=== PATIENT | male | born 1970 | race Caucasian/White ===

== ENCOUNTER 2017-05-28 20:02 | Emergency (ER) | payer MEDICAID ==
[~2017-05-28] VITALS: Ht 172.7 cm; Wt 87.0 kg
[2017-05-28 20:16] VITALS: Ht 172.7 cm; Wt 87.0 kg
[2017-05-28] MEDS ORDERED: KETOROLAC 15 MG INJ IM STA (21:00)
[2017-05-28] MEDS ORDERED: DIAZEPAM 5 MG TAB PO ONE (21:00)
[2017-05-28] MEDS ORDERED: HYDR-906 PO (22:40)
--- NOTE | 2017-05-28 22:40 | ERD ---
ER Documentation Chief Complaint Date/Time DATE: 05/28/17 TIME: 22:36 Chief Complaint fell yesterday hit his back; c/o back pain now HPI This pleasant 46-year-old male patient presents to emergency department for evaluation of right-sided back pain. Patient reports injury when he leaned forward from a stool that he was sitting on and went to lean back missed the stool hitting his back on the edge of the stool. Patient reports right-sided pain 8/10 on pain scale. 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 Denies any alteration in bowel or bladder able to ambulate without deficit. ROS All systems reviewed and are negative except as per history of present illness. Medications Home Meds Active Scripts Tramadol HCl (Tramadol HCl) 50 Mg Tablet, 50 MG PO Q4 Y for PAIN, #15 TAB Prov:JOSE L TILLEY MD 05/30/17 Naproxen* (Naprosyn*) 500 Mg Tablet, 500 MG PO BID Y for PAIN AND/OR INFLAMMATION, #20 TAB Prov:JORGE,AXEL 05/28/17 Hydrocodone/Acetaminophen ([place] 5-325 Tablet) 1 Each Tablet, 1 TAB PO Q6H Y for PAIN, #7 TAB Prov:JORGE,AXEL 05/28/17 Allergies Allergies: Coded Allergies: No Known Allergy (Unverified , 05/30/17) PMhx/Soc Medical and Surgical Hx: pt denies Surgical Hx Anesthesia Reaction: No Hx Miscellaneous Medical Probl: Yes (chronic back pain) Hx Alcohol Use: No Hx Substance Use: No Hx Tobacco Use: No Smoking Status: Never smoker Physical Exam Vitals Vitals stable, triage notes reviewed Physical Exam Const: Well-appearing well-nourished, well-hydrated no acute Head: Atraumatic Eyes: Normal Conjunctiva, PERRLA, EOMI ENT: Normal External Ears, Nose and Mouth mucous membranes moist. Neck: Resp: Respirations even and on Cardio: Regular rate and rhythm, no murmurs Abd: Soft, non tender, non distended no CVA tenderness Skin: Back Exam: Skin: No bruising or rash Compartments: Soft Motor: Normal flexion and extension of bilateral hip/knee/ ankle/foot] straight leg rises negative at 90. Negative pain with abduction or abduction Sensation: Intact to light touch throughout Bones: No midline TTP Ext: No cyanosis, or edema Neur: Awake and alert Psych: Normal Mood and Affect Results 24 hrs Current Medications Medications (Trade) Dose Ordered Sig/Allyssa Route PRN Reason Start Time Stop Time Status Last Admin Dose Admin Ketorolac Tromethamine (Toradol) 15 mg ONCE STAT IM 05/28/17 21:00 05/28/17 21:02 DC 05/28/17 21:16 Diazepam (Valium) 5 mg ONCE ONCE PO 05/28/17 21:00 05/28/17 21:02 DC 05/28/17 21:17 Procedures/MDM This pleasant 46-year-old male patient presents to emergency department today for back injury. Patient reports he was sitting on his tool leaning forward to and his in an item in when he leaned back he missed the stool that he was sitting on hitting his back on the hardwood surface. Patient patient is able to ambulate without limp or listing. Has no alteration in bowel or bladder. Low suspicion for a malignancy or infectious discitis, transverse myelitis or epidural abscess or hematoma. No suspicion for cauda equina syndrome. Patient straight leg rises support a musculoskeletal injury. X-ray not indicated. Patient received Toradol and Valium in emergency department with minimal relief of symptoms. Patient given additional medication with [place]. Will be discharged home with [place] for pain greater than 5 out of 10 on pain scale, Naprosyn 500 mg 1 tab p.o. twice daily pain less than 5 out of 10. Instructed to follow-up with primary care physician for referral to physical therapy or further diagnostic studies. Return to emergency department for alteration ambulation, change in bowel or bladder. I feel the patient is stable for discharge at this time. I have discussed results, examination findings, the treatment plan with the patient and family present prior to discharge. Indications for emergent reevaluation, side effects of medication were also discussed. All questions were answered. Patient verbalizes understanding and agrees with plan of care. Departure Diagnosis: Primary Impression: Back contusion Encounter type: initial encounter Laterality: right Qualified Code: S20.221A - Back contusion, right, initial encounter Patient Instructions: Contusion, Back [facility] Additional Instructions: Thank you for for coming to [facility] for your care today. Please ask your nurse or provider if you have questions about your care today and do not leave until all your questions have been answered. Please use any medications given as directed and follow-up with your doctor (or the doctor you were referred to) in the next 2-3 days. If you do not have a primary care doctor you may follow up at the [facility] (listed below). You may also use motrin and tylenol as needed for fever and/or pain unless instructed otherwise by your provider or nurse. Indications for more urgent follow-up have been discussed, but you may return to the Emergency Department at ANY time for any worrisome or worsening symptoms. If you have abdominal pain, please know that no test or exam you received is perfect and you should follow up within 8 hours for continued pain. If you had any imaging studies today, such as an X-Ray or CT Scan, these studies will be reviewed later by a radiologist. You will be called if there are important findings that were not identified today, so make sure the contact information you provided at registration is correct. If you received any narcotic pain control medicine today, such as Vicodin, Morphine or Dilaudid, your coordination and judgment may be affected for a number of hours. Please do not drive or operate heavy machinery, and you may want someone to assist you at home. If you were given a prescription for narcotic medication, be aware that it is very addictive- use sparingly and only if necessary. AXEL PATEL May 28, 2017 22:40
[2017-05-28] MEDS ORDERED: NAPR-260 PO (22:41)
== END 2017-05-28 22:49 | disposition home or self-care (01) ==
LOC: FTE 20:02
DX: S20.221A Contusion of right back wall of thorax, initial encounter (principal); W18.09XA Striking against other object with subsequent fall, initial encounter; Y92.9 Unspecified place or not applicable
CPT/HCPCS: J1885; Z7610; 96372

== ENCOUNTER 2017-05-30 19:07 | Emergency (ER) | payer MEDICAID ==
[~2017-05-30] VITALS: Ht 177.8 cm; Wt 87.0 kg
[~2017-05-30 19:07] MED LIST: HYDR-906 PO; NAPR-260 PO
[2017-05-30 19:12] VITALS: Ht 177.8 cm; Wt 87.0 kg
[2017-05-30] MEDS ORDERED: HYDROCODONE/APAP (5/325) TAB PO ONE (21:00)
[2017-05-30] MEDS ORDERED: TRAM50TA2 PO (21:33)
--- NOTE | 2017-05-30 21:36 | ERD ---
ER Documentation Chief Complaint Date/Time DATE: 05/30/17 TIME: 21:34 Chief Complaint back pain x 5 days, denies injury HPI 38-year-old male presents with right lower back pain. It started after falling off a stool and landing against the edge of a counter. He is seen here 2 days ago and prescribed short course of [place] and ibuprofen. Describes pain despite medication. Denies any fevers, vomiting, shortness breath or chest pain or urinary complaints or bowel bladder incontinence or weakness. ROS All systems reviewed and are negative except as per history of present illness. Medications Home Meds Active Scripts Tramadol HCl (Tramadol HCl) 50 Mg Tablet, 50 MG PO Q4 Y for PAIN, #15 TAB Prov:JOSE L TILLEY MD 05/30/17 Naproxen* (Naprosyn*) 500 Mg Tablet, 500 MG PO BID Y for PAIN AND/OR INFLAMMATION, #20 TAB Prov:JORGE,AXEL 05/28/17 Hydrocodone/Acetaminophen ([place] 5-325 Tablet) 1 Each Tablet, 1 TAB PO Q6H Y for PAIN, #7 TAB Prov:JORGE,AXEL 05/28/17 Allergies Allergies: Coded Allergies: No Known Allergy (Unverified , 05/30/17) PMhx/Soc Anesthesia Reaction: No Hx Miscellaneous Medical Probl: Yes (chronic back pain) Hx Alcohol Use: No Hx Substance Use: No Hx Tobacco Use: No Smoking Status: Never smoker Physical Exam Vitals Vital Signs Date Time Temp Pulse Resp B/P Pulse Ox O2 Delivery O2 Flow Rate FiO2 05/30/17 19:12 97.7 68 20 137/80 98 Physical Exam Const: [] Alert, [id number] per Head: Atraumatic Eyes: Normal Conjunctiva ENT: Normal External Ears, Nose and Mouth. Neck: Full range of motion..~ No meningismus. Resp: Clear to auscultation bilaterally Cardio: Regular rate and rhythm, no murmurs Abd: Soft, non tender, non distended. Normal bowel sounds Skin: No petechiae or rashes Back: No midline or flank tenderness. Tenderness in the right L4-5 area without midline tenderness or deformities. Ext: No cyanosis, or edema Neur: Awake and alert Psych: Normal Mood and Affect Results 24 hrs Current Medications Medications (Trade) Dose Ordered Sig/Allyssa Route PRN Reason Start Time Stop Time Status Last Admin Dose Admin Acetaminophen/ Hydrocodone Bitart ([place] (5/325)) 1 tab ONCE ONCE PO 05/30/17 21:00 05/30/17 21:01 DC 05/30/17 21:24 Procedures/MDM Given pain despite treatment and previous visit x-ray was performed. Patient was given [place] 5 mg by mouth. . X-ray LS-Spine 3V Interpreted by me: Bones: [No fracture] Joints: [No dislocation] Foreign body: [None]. Impression have normal lumbar spine x-ray Patient signs and symptoms of lumbar contusion without evidence of fracture, dislocation, bacterial infection, neurologic deficit. He will be treated with tramadol and is in further observation at home. She will continue Naprosyn. The patient was stable with no new complaints during the ER course. Clinically, there is no current evidence to suggest meningitis, sepsis, acute abdomen, pneumonia, acute coronary syndrome, pulmonary embolism, or any other emergent condition appearing to require further evaluation or hospitalization. The patient should certainly return for any new or worsening symptoms per the aftercare instructions. They should otherwise follow-up with her primary care doctor for reevaluation this week. Departure Diagnosis: Primary Impression: Injury of back Encounter type: initial encounter Qualified Code: S39.92XA - Injury of back , initial encounter Condition: Stable Patient Instructions: Back Sprain/Strain Additional Instructions: Examines normal hoy. Cheque otro vez con [facility] doctor primario en el proximo barroso or regresa para mas o nueva simptomas. ok para contiuna otro medicina JOSE L TILLEY MD May 30, 2017 21:36
--- NOTE | 2017-05-30 21:54 | RADRPT ---
PROCEDURE: XR Lumbar Spine. CLINICAL INDICATION: Post traumatic low back pain TECHNIQUE: AP, cone-down lateral, and lateral views of the lumbar spine were obtained. COMPARISON: None. FINDINGS: Mineralization is within normal limits. Vertebral bodies are normal in height. No fracture is iden tified. Lumbar lordosis is preserved. No vertebral subluxation is seen. Moderate degenerative disk narrowing is present at L5-S1. There is mild to moderate multilevel anterior and peripheral spondy losis. The remaining intervertebral discs are normal in height. Facet arthropathy is noted at L5-S1 . RPTAT:HJJR IMPRESSION: Multilevel degenerative spondylosis with disk space narrowing at L5-S1 but no evidence of acute post traumatic lumbar spine abnormality. Physician Ryne Date Time Electronically viewed and signed by Physician Ryne on 05/30/2017 21:54 JR/
== END 2017-05-30 22:14 | disposition home or self-care (01) ==
LOC: FTE 19:07
DX: S39.92XA Unspecified injury of lower back, initial encounter (principal); W08.XXXA Fall from other furniture, initial encounter; Y92.9 Unspecified place or not applicable
CPT/HCPCS: 72100; Z7502; Z7610

== ENCOUNTER 2018-01-11 07:53 | Emergency (ER) | END 2018-01-11 09:48 | disposition home or self-care (01) ==